=== PATIENT | female | born 1960 | race Caucasian/White ===

== ENCOUNTER 2021-09-05 13:29 | Inpatient (IN) | payer MEDICAID, SELFPAY ==
[~2021-09-05] VITALS: Ht 167.6 cm; Wt 65.8 kg
--- NOTE | 2021-09-05 13:30 | NUR ---
Pt fior via gurney to bed 12.
[2021-09-05 13:35] VITALS: BP 136/75
--- NOTE | 2021-09-05 14:02 | NUR ---
pt bib als run c/o left sided chest pain radiatng to back and down left arm since this am. 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 NSR on monitor. NAD. safety maintained.
[2021-09-05 14:23] LABS: BASOPHILS # (AUTO) 0.1 K/uL (0.00-0.22); BASOPHILS % (AUTO) 2.2 % (0.0-2.0); EOSINOPHILS % (AUTO) 0.7 % (0.0-4.0); HEMATOCRIT 39.1 % (36-48); HEMOGLOBIN 13.2 g/dL (12.0-16.0); LYMPHOCYTES # (AUTO) 1.8 K/uL (2.5-16.5); MEAN CORPUSCULAR HEMOGLOBIN 31 pg (27-31); MEAN CORPUSCULAR HGB CONC 34 g/dL (33-37); MEAN CORPUSCULAR VOLUME 91.2 fL (80-94); MONOCYTES # (AUTO) 0.4 K/uL (0.8-1.0); MONOCYTES % (AUTO) 6.7 % (1.7-9.3); NEUTROPHILS # (AUTO) 3.6 K/uL (1.8-7.7); NEUTROPHILS % (AUTO) 60.4 % (42.2-75.2); PLATELET COUNT (AUTO) 238 K/uL (140-450); RED BLOOD CELL COUNT(AUTO) 4.29 MIL/uL (4.20-5.40); RED CELL DISTRIBUTION WIDTH 13.6 % (11.6-13.7); WHITE BLOOD COUNT (AUTO) 5.9 K/uL (4.8-10.8)
[2021-09-05 14:36] LABS: PROTHROMBIN TIME 9.9 secs (10.8-13.4)
[2021-09-05 14:37] LABS: ALBUMIN 3.6 g/dL (3.4-5.0); CARBON DIOXIDE 25.4 mmol/L (21-32); CREATININE 0.8 mg/dL (0.6-1.3); POTASSIUM 3.4 mmol/L (3.5-5.1); TOTAL BILIRUBIN 0.3 mg/dL (0.0-1.0)
[2021-09-05] MEDS ORDERED: NITROGLYCERIN 2% 1 GM PKT TP ONE (16:00)
[2021-09-05] MEDS ORDERED: NACL 0.9% 1,000 ML IV SCH (16:30)
[2021-09-05] MEDS ORDERED: POTASSIUM CHLORIDE 10 MEQ TABER PO PRN (18:55)
[2021-09-05] MEDS ORDERED: guaiFENesin DM 200/20 MG-10 ML 10 ML UDC PO PRN (18:55)
[2021-09-05] MEDS ORDERED: ONDANSETRON 4 MG/2 ML VIAL IM/IVP PRN (18:55)
[2021-09-05] MEDS ORDERED: NITROGLYCERIN 0.4 MG TAB SL PRN (18:55)
[2021-09-05] MEDS ORDERED: HYDROcodone/APAP 7.5/325 MG 1 TAB PO PRN (18:55)
[2021-09-05] MEDS ORDERED: KETOROLAC 30 MG/ML VIAL IVP PRN (18:55)
[2021-09-05] MEDS ORDERED: ACETAMINOPHEN 325 MG TAB PO PRN (18:55)
[2021-09-05] MEDS ORDERED: DOCUSATE SODIUM 100 MG GELCAP PO PRN (18:55)
[2021-09-05] MEDS ORDERED: KETOROLAC 30 MG/ML VIAL IM ONE (18:55)
[2021-09-05] MEDS ORDERED: ZOLPIDEM 5 MG TAB PO PRN (18:55)
--- NOTE | 2021-09-05 19:17 | NUR ---
REPORT RECEIVED FROM DEVAN ALTAMIRANO FOR CONTINUITY OF PT CARE AT THIS TIME.
--- NOTE | 2021-09-05 19:32 | NUR ---
PT LAYING SUPINE IN BED W BED LOCKED IN LOWEST POSITION X1 SIDERAIL UP, AT OTHER BEDSIDE. PT REPORTS FEELING BETTER W PAIN IMPROVEMENT OF CHEST PAIN AND HEADACHE. PT DENIES SOB, DIZZYNESS, N/V/D. PT PEE AT 54HR BUT OTHERWISE VSS. CONNECTED TO MONITOR. BREATHING EVEN AND UNLABORED, NAD NOTED, WILL CONTINUE TO MONITOR.
--- NOTE | 2021-09-05 19:55 | NUR ---
PT AMBULATED TO [facility] W STEADY GAIT, PT REPORTS IT FELT GOODS TO WALK, NO DIZZYNESS.
[2021-09-05] MEDS: NACL 0.9% 1,000 ML IV SCH (20:03)
[2021-09-05 20:07] LABS: CHOL/HDL RATIO 4.1 (1-4.5); FREE T4 (FREE THYROXINE) 0.84 ng/dL (0.76-1.46); MAGNESIUM 1.9 mg/dL (1.8-2.4); PHOSPHORUS 4.1 mg/dL (2.5-4.9); THYROID STIMULATING HORMONE 14.85 uIU/mL (0.34-3.74)
--- NOTE | 2021-09-05 20:45 | NUR ---
PT REQUESTING [place]ALO. PT PROVIDED W JARROD. ALL NEEDS MET AT THIS TIME.
[2021-09-05] MEDS ORDERED: LEVO0.1211 PO (20:52)
[2021-09-05] MEDS ORDERED: PROP10TA28 PO (20:52)
[2021-09-05] MEDS ORDERED: CRUSHER, PILL MC ONE (21:23)
[2021-09-05] MEDS: METOPROLOL 25 MG TAB PO SCH (21:30)
[2021-09-05 21:34] LABS: APPEARANCE,URINE CLEAR (CLEAR); BILIRUBIN,URINE NEGATIVE (NEGATIVE); BLOOD, URINE NEGATIVE (NEGATIVE); LEUKOCYTE ESTERASE ,URINE NEGATIVE (NEGATIVE); NITRITE, URINE NEGATIVE (NEGATIVE); UGLUCOSE NEGATIVE (NEGATIVE)
[2021-09-05 21:41] LABS: COLOR,URINE STRAW (YELLOW)
[2021-09-05 22:00] LABS: BARBITURATE, URINE NEGATIVE ng/ml (NEG <=200); BENZODIAZEPINE, URINE POSITIVE ng/mL (NEG <=200); CANNABINOID, URINE NEGATIVE ng/mL (NEG <=50); COCAINE, URINE NEGATIVE ng/mL (NEG <=300); OPIATE, URINE NEGATIVE ng/mL (NEG <=2000); PHENCYCLIDINE SCREEN,URINE NEGATIVE ng/mL (NEG <=25)
--- NOTE | 2021-09-06 00:05 | NUR ---
PT APPEARS TO BE RESTING W EYES CLOSED, SUPINE POSITION, BLNAKET ON . BED LOCKED INLOWEST POSITION. X1 SIDERAIL UP. CONNECTED TO MONITOR W VSS. BREATHING EVEN AND UNLABORED. NAD NOTED, WILL CONTINUE TO MONITOR.
--- NOTE | 2021-09-06 05:00 | NUR ---
PT APPEARS TO BE RESTING W EYES CLOSED, SUPINE POSITION. BED LOCKED IN LOWEST POSITION W X1 SIDERAIL UP. CONNECTED TO MONITOR W VSS. BREATHING EVEN AND UNLABORED, NAD NOTED, WILL CONTINUE TO MONITOR.
[2021-09-06 07:10] LABS: BASOPHILS # (AUTO) 0.1 K/uL (0.00-0.22); BASOPHILS % (AUTO) 0.8 % (0.0-2.0); EOSINOPHILS # (AUTO) 0.1 K/uL (0-0.4); EOSINOPHILS % (AUTO) 0.9 % (0.0-4.0); HEMATOCRIT 38.9 % (36-48); HEMOGLOBIN 12.9 g/dL (12.0-16.0); LYMPHOCYTES # (AUTO) 2.5 K/uL (2.5-16.5); LYMPHOCYTES % (AUTO) 36.5 % (20.5-51.1); MEAN CORPUSCULAR HEMOGLOBIN 31 pg (27-31); MEAN CORPUSCULAR HGB CONC 33 g/dL (33-37); MEAN CORPUSCULAR VOLUME 91.9 fL (80-94); MONOCYTES # (AUTO) 0.5 K/uL (0.8-1.0); MONOCYTES % (AUTO) 7.4 % (1.7-9.3); NEUTROPHILS # (AUTO) 3.7 K/uL (1.8-7.7); NEUTROPHILS % (AUTO) 54.4 % (42.2-75.2); PLATELET COUNT (AUTO) 229 K/uL (140-450); RED BLOOD CELL COUNT(AUTO) 4.23 MIL/uL (4.20-5.40); RED CELL DISTRIBUTION WIDTH 13.5 % (11.6-13.7); WHITE BLOOD COUNT (AUTO) 6.8 K/uL (4.8-10.8)
--- NOTE | 2021-09-06 07:22 | NUR ---
Pt report given to DEVAN TAYLOR. Transfer of care at this time.
[2021-09-06 07:49] LABS: ANION GAP 13.5 (8-16); CARBON DIOXIDE 22.7 mmol/L (21-32); CREATININE 0.7 mg/dL (0.6-1.3); POTASSIUM 4.2 mmol/L (3.5-5.1)
--- NOTE | 2021-09-06 08:30 | NUR ---
ECHOCARDIOGRAM BEING PEFORMED BEDSIDE.
--- NOTE | 2021-09-06 09:00 | NUR ---
PATIENT PROVIDED WITH BREAKFAST TRAY, PATIENT SITTING UP IN BED EATING. ALL NEEDS MET AT THIS TIME.
--- NOTE | 2021-09-06 10:00 | NUR ---
PATIENT AMBULATED TO [facility] WITH STEADY GAIT.
[2021-09-06] MEDS: METOPROLOL 25 MG TAB PO SCH ×3 (10:52→22:32)
[2021-09-06] MEDS: ECOTRIN 81 MG TABEC PO SCH (10:57)
[2021-09-06] MEDS: PANTOPRAZOLE 40 MG TABEC PO SCH (10:57)
[2021-09-06] MEDS: lisinopriL 5 MG TAB PO SCH (10:58)
--- NOTE | 2021-09-06 12:33 | NUR ---
PATIENT PROVIDED WITH LUNCH TRAY, SITTING UP IN BED EATING. ALL NEEDS MET AT THIS TIME.
--- NOTE | 2021-09-06 12:56 | NUR ---
PATIENT C/O PAIN, MEDICATED WITH PRN TORADOL ORDERED.
--- NOTE | 2021-09-06 14:00 | NUR ---
PATIENT RESTING IN BED ON PHONE, STATES RELIEF FROM PAIN. ON BEDSIDE ALUMINUM POLISHER WILL CONTINUE TO MONITOR.
--- NOTE | 2021-09-06 15:11 | NUR ---
PATIENT HAS BEEN SCREENED AND CATEGORIZED LOW NUTRITION RISK. PATIENT WILL BE SEEN WITHIN 7 DAYS OF ADMISSION. 09/12/[address]
--- NOTE | 2021-09-06 16:21 | NUR ---
PATIENT RESTING IN BED WITH EYES CLOSED, ON BEDSIDE REEL WORKER, WILL CONTINUE TO MONITOR. AT BEDSIDE.
[2021-09-06] MEDS ORDERED: ATORVASTATIN 20 MG TAB PO SCH (17:00)
--- NOTE | 2021-09-06 18:50 | NUR ---
PATIENT PROVIDED WITH DINNER TRAY, PATIENT SITTING UP IN BED EATING. ALL NEEDS MET AT THIS TIME.
--- NOTE | 2021-09-06 19:21 | NUR ---
Received report from Jacy HARTMAN for continuity of care
--- NOTE | 2021-09-06 19:21 | NUR ---
Pt report given to DEVAN RAMIREZ. Transfer of care at this time.
[2021-09-06] MEDS: NACL 0.9% 1,000 ML IV SCH (19:26)
--- NOTE | 2021-09-06 19:26 | NUR ---
Patient appears to be resting comfortably in bed-- laying on left side and at bedside. Vital Signs within normal limits. Respirations even and unlabored. No signs of distress noted. Fluid running through IV. Patient denies pain. Patient requesting pillow and will provide. Safety measures in place, attached to monitor and will continue to monitor patient.
--- NOTE | 2021-09-06 20:18 | NUR ---
called for report-- asked to call back in 15mins-20mins florist helper will call back in 15mins-20mins after Discharging patient.
--- NOTE | 2021-09-06 22:17 | NUR ---
Patient will be admitted to care of Marianela NARAYAN. Admited to Telemetry. Will go to room 111A. Belongings list completed. Report to Fiorella HARTMAN.
--- NOTE | 2021-09-06 22:37 | NUR ---
non administered metoprolol as patient HR is at 50bpm. Held medication.
--- NOTE | 2021-09-06 22:47 | NUR ---
patient tx to floor via rgreyson
--- NOTE | 2021-09-06 22:50 | NUR ---
PATIENT WAS BROUGHT TO [facility] FROM ER . AAOX4. NO ACUTE DISTRESS NOTED. RESPIRATION EVEN UNLABORED. CC: CHEST PAIN. ON TELE MONITOR SINUS RHYTHM. ON ROOM AIR. PATIENT IS ABLE TO AMBULATE WITHOUT ASSIST. SKIN IS INTACT. LUNGS CLEAR ON AUSCULTATION. BOWEL PRESENT IN ALL 4 QUADRANT. NO COMPLAINTS OF PAIN AT THIS TIME. SAFETY MEASURES IN PLACE. CALL LIGHT WITHIN REACH. MRSA SCREENING DONE.
[2021-09-07] VITALS: BP 114/60
[2021-09-07 04:00] VITALS: BP 99/54
[2021-09-07] MEDS ORDERED: LEVOTHYROXINE 0.025 MG TAB PEG SCH (06:30)
[2021-09-07 07:07] LABS: BASOPHILS % (AUTO) 0.9 % (0.0-2.0); EOSINOPHILS % (AUTO) 0.8 % (0.0-4.0); HEMATOCRIT 37.6 % (36-48); HEMOGLOBIN 12.5 g/dL (12.0-16.0); LYMPHOCYTES # (AUTO) 2.2 K/uL (2.5-16.5); LYMPHOCYTES % (AUTO) 40.4 % (20.5-51.1); MEAN CORPUSCULAR HEMOGLOBIN 30 pg (27-31); MEAN CORPUSCULAR HGB CONC 33 g/dL (33-37); MEAN CORPUSCULAR VOLUME 91.7 fL (80-94); MONOCYTES # (AUTO) 0.4 K/uL (0.8-1.0); MONOCYTES % (AUTO) 7.4 % (1.7-9.3); NEUTROPHILS # (AUTO) 2.8 K/uL (1.8-7.7); NEUTROPHILS % (AUTO) 50.5 % (42.2-75.2); PLATELET COUNT (AUTO) 238 K/uL (140-450); RED BLOOD CELL COUNT(AUTO) 4.11 MIL/uL (4.20-5.40); RED CELL DISTRIBUTION WIDTH 13.4 % (11.6-13.7); WHITE BLOOD COUNT (AUTO) 5.5 K/uL (4.8-10.8)
[2021-09-07 07:20] LABS: ANION GAP 11.2 (8-16); CARBON DIOXIDE 28.2 mmol/L (21-32); CREATININE 0.7 mg/dL (0.6-1.3); POTASSIUM 4.4 mmol/L (3.5-5.1)
--- NOTE | 2021-09-07 07:37 | NUR ---
ENDORSED TO AM NURSE FOR CONTINUITY OF CARE. PT IN STABLE CONDITION. BREATHING EVEN UNLABORED.
[2021-09-07 08:00] VITALS: BP 117/68
--- NOTE | 2021-09-07 08:00 | NUR ---
RECEIVED REPORT FROM RUBBER FLAP CUTTER FOR CONTINUITY OF CARE. PATIENT ALERT AWAKE ORIENTED X4, NOT IN ANY DISTRESS NOTED. DENIES CHEST PAIN. WITH IVF ON GOING AND INFUSING WELL. ON MONITOR SHOWS SB HR-52. EATING BREAKFAST WITH GOOD APPETITE. NEEDS ATTENDED, WILL CONTINUE TO MONITOR.
[2021-09-07 08:07] LABS: T4 (THYROXINE) 6.3 ug/dL (4.5-12.0)
[2021-09-07] MEDS: ECOTRIN 81 MG TABEC PO SCH (08:50)
[2021-09-07] MEDS: METOPROLOL 25 MG TAB PO SCH (08:51)
[2021-09-07] MEDS: PANTOPRAZOLE 40 MG TABEC PO SCH (08:51)
[2021-09-07] MEDS: lisinopriL 5 MG TAB PO SCH (08:51)
--- NOTE | 2021-09-07 09:00 | NUR ---
SEEN BY DR. MOON AND DISCUSSED PLAN OF CARE. DUE MEDICATIONS GIVEN, HOLD METOPROLOL HR-55, NOTIFIED DR. GARCIA AND MADE AWARE. WILL CONTINUE TO MONITOR.
[2021-09-07] MEDS ORDERED: ATOR40TA PO (10:33)
[2021-09-07] MEDS ORDERED: ASPI-1822 PO (10:33)
[2021-09-07] MEDS ORDERED: LEVO0.1211 PO (10:35)
[2021-09-07 12:00] VITALS: BP 117/69
--- NOTE | 2021-09-07 12:20 | NUR ---
DISCHARGE PATIENT TO HOME AMBULATORY WITH THE DISCHARGE INSTRUCTION GIVEN TO THE DAUGHTER OPAL OVER THE PHONE AND VERBALIZED UNDERSTANDING. PATIENT IN STABLE CONDITION.
== END 2021-09-07 12:20 | disposition home or self-care (01) | DRG 243 ==
LOC: MED 13:29 → MTU 16:30
PROVIDERS: ADMIT Family Medicine; ATTEND Family Medicine
DX: K21.9 Gastro-esophageal reflux disease without esophagitis (principal); I24.9 Acute ischemic heart disease, unspecified; E03.9 Hypothyroidism, unspecified; I10 Essential (primary) hypertension; Z20.822 Contact with and (suspected) exposure to COVID-19; E78.5 Hyperlipidemia, unspecified; Z88.5 Allergy status to narcotic agent; Z79.899 Other long term (current) drug therapy
CPT/HCPCS: 36415; 71045; 80048; 80053; 80305; 81003; 82150; 83036; 83690; 83735; 83880; 84100; 84436; 84439; 84443; 84479; 84484; 85025; 85610; 85730; 87081; 93005; 96372; 96374; 99285; J1644; J1885; Q0092